=== PATIENT | female | born 1960 | race Caucasian/White ===

== ENCOUNTER 2022-12-28 20:35 | Emergency (ER) | payer BC ==
[2022-12-28] MEDS ORDERED: Acetaminophen/oxyCODONE 325-5 MG Tab PO ONE (22:07)
[2022-12-28] MEDS ORDERED: Ibuprofen 600 MG Tab PO ONE (22:07)
[2022-12-28 22:24] VITALS: BP 148/93; PULSE 88
== END 2022-12-28 22:22 | disposition home or self-care (01) ==
LOC: MW.ED 20:35
DX: M70.21 Olecranon bursitis, right elbow (principal); Z88.0 Allergy status to penicillin; Z79.82 Long term (current) use of aspirin; Z79.899 Other long term (current) drug therapy; W22.8XXA Striking against or struck by other objects, initial encounter
CPT/HCPCS: 73080; 99283; A9270

== ENCOUNTER 2025-01-15 11:35 | Emergency (ER) | payer BC ==
[2025-01-15] MEDS ORDERED: Sodium Chloride 0.9% 10 ML Syringe FLUSH PRN (12:38)
[2025-01-15] MEDS ORDERED: Sodium Chloride 0.9% 2.5 ML Syringe FLUSH PRN (12:38)
[2025-01-15 12:52] LABS: APPEARANCE,URINE SLT CLOUDY; GLUCOSE,URINE 100 mg/dL (NEGATIVE); OCCULT BLOOD,URINE LARGE (NEGATIVE)
[2025-01-15 13:02] LABS: EPITHELIAL CELLS,URINE FEW (NONE-FEW)
[2025-01-15] MEDS: fentaNYL 100 MCG/2 ML SDV IVPUSH ONE (13:09)
[2025-01-15] MEDS: Ondansetron 4 MG/2 ML SDV IVPUSH ONE (13:09)
[2025-01-15 13:21] LABS: BASOPHILS ABSOLUTE AUTO 0.03 K/uL (0.00-0.20); BASOPHILS PERCENT AUTO 0.3 % (0.0-1.0); EOSINOPHILS ABSOLUTE AUTO 0.34 K/uL (0.00-0.45); EOSINOPHILS PERCENT AUTO 3.2 % (0.0-6.0); IMMATURE GRAN ABSOLUTE AUTO 0.05 K/uL (0.00-0.05); IMMATURE GRAN PERCENT AUTO 0.5 % (0.0-0.4); LYMPHOCYTES ABSOLUTE AUTO 0.49 K/uL (1.00-4.80); LYMPHOCYTES PERCENT AUTO 4.5 % (24.0-44.0); MEAN PLATELET VOLUME 9.7 fL (9.4-12.3); MONOCYTES ABSOLUTE AUTO 0.49 K/uL (0.00-0.80); MONOCYTES PERCENT AUTO 4.5 % (0.0-8.0); NEUTROPHILS ABSOLUTE AUTO 9.39 K/uL (1.80-7.70); NEUTROPHILS PERCENT AUTO 87.0 % (41.0-71.0); NRBC ABSOLUTE 0.00 K/uL (0.00-0.02); NRBC PERCENT 0.0 /100WBC (0.0-0.2); PLATELET COUNT,PLT 262 K/uL (150-400); RED BLOOD CELL COUNT 5.39 M/uL (4.10-5.30); WHITE BLOOD CELL COUNT,WBC 10.79 K/uL (3.9-11.3)
[2025-01-15 13:45] LABS: A/G RATIO 0.9 (0.9-1.6); ALANINE AMINOTRANSFERASE,ALT 451.0 IU/L (14-63); ASPARTATE AMNIOTRANSFERASE,AST 556.0 IU/L (15-37); BILIRUBIN TOTAL 0.5 mg/dL (0.2-1.0); BLOOD UREA NITROGEN,BUN 9.0 mg/dL (7.0-18.0); CARBON DIOXIDE,CO2 29.1 mmol/L (21.0-32.0); CHLORIDE,CL 94.0 mmol/L (98-107); CREATININE 0.9 mg/dL (0.6-1.0); EST CRCL DRUG DOSING (CG) 47.65 mL/min; GLUCOSE RANDOM 113.0 mg/dL (74-106); POTASSIUM,K 3.6 mmol/L (3.5-5.1); PROTEIN TOTAL,TP 7.8 g/dL (6.4-8.2); SODIUM,NA 134.0 mmol/L (136-145)
[2025-01-15 13:47] LABS: ESTIMATED GFR 71.0 mL/min (>60)
[2025-01-15] MEDS: Iopamidol 755 Mg/ML 100 ML Bottle IVPUSH ONE (14:04)
[2025-01-15 18:09] VITALS: BP 111/93; PULSE 105
[2025-01-18 13:07] LABS: HAV AB IGM Negative (Negative)
== END 2025-01-15 18:11 | disposition home or self-care (01) ==
LOC: MW.ED 11:35
DX: R10.31 Right lower quadrant pain (principal); R10.32 Left lower quadrant pain; R11.2 Nausea with vomiting, unspecified; R74.01 Elevation of levels of liver transaminase levels; Z88.0 Allergy status to penicillin; Z79.82 Long term (current) use of aspirin; Z79.899 Other long term (current) drug therapy
CPT/HCPCS: 36415; 74177; 76705; 80053; 81001; 83690; 83735; 85025; 86706; 86709; 86803; 87340; 87428; 93005; 96361; 96374; 96375; 99284; J2405; J3010; J7030; Q9967